=== PATIENT | female | born 1975 | race Caucasian/White ===

== ENCOUNTER 2017-02-17 11:49 | Emergency (ER) | payer OTHER ==
[~2017-02-17] VITALS: Ht 177.8 cm; Wt 90.7 kg
[2017-02-17 11:57] VITALS: BP 126/77
[2017-02-17] MEDS ORDERED: FLOXIN10 ML OT (12:33)
--- NOTE | 2017-02-17 12:33 | ED EAR COMPLAINT ---
History of Present Illness General Chief Complaint: Ear Complaints Stated Complaint: EAR PAIN DIZZINESS Source: patient Exam Limitations: no limitations Vital Signs & Intake/Output Vital Signs & Intake/Output Vital Signs Date Time Temp Pulse Resp B/P Pulse O2 O2 Flow FiO2 Ox Delivery Rate 02/17 1229 Room Air 02/17 1157 98.0 66 16 126/77 98 Room Air Allergies Coded Allergies: codeine (N/V 02/17/17) latex (HIVES 02/17/17) Reconcile Medications Ofloxacin (Floxin) 0.3 % DROPS 2 GTT OT DAILY TM PERFORATION Triage Note: PT STATES WEDNESDAY NIGHT SHE WAS AT WORK AND THERE WAS A LOUD NOISE BY HER AND SHORTLY AFTER SHE HAD SHARP PAIN IN BILAT EARS AND THEN SHE HAD FLUID COMING OUT OF HER RIGHT EAR. PT STATES SHE BLEW HER NOSE AND HEARD AIR BLOWING THROUGH HER EAR AND SHE HAS HAD VERTIGO SINCE. Triage Nurses Notes Reviewed? yes : No Patient currently breastfeeds: No HPI: this patient is a 41-year-old female who presented to the emergency department today for evaluation of bilateral ear pain. The patient reported that on Wednesday evening while she was at work someone dropped a pallet on the ground. She reported that it made it very loud noise which instantly caused her to have pain in both of her ears. She reported that the pain in her right ear subsided and then she began noticing fluid draining from the right ear. She reported that it sounds like, "there is cotton in my right ear." She reported that she has been dizzy. She had a headache after the incident, but not currently. The patient denied any fevers or chills. No chest pain or difficulty breathing. (BKAARI REYES PA-C) Past History Travel History Traveled to [place] past 21 day No Medical History Any Pertinent Medical History? see below for history Surgical History Surgical History: non-contributory Psychosocial History What is your primary language Nigerian Tobacco Use: Never used ETOH Use: occasional use Illicit Drug Use: denies illicit drug use Family History Hx Contributory? No (BAKARI REYES PA-C) Review of Systems Review of Systems Constitutional: Reports: no symptoms. EENTM: Reports: see HPI. Respiratory: Reports: no symptoms. Cardiovascular: Reports: no symptoms. GI: Reports: no symptoms. Genitourinary: Reports: no symptoms. Musculoskeletal: Reports: no symptoms. Skin: Reports: no symptoms. Neurological/Psychological: Reports: see HPI. All Other Systems: Reviewed and Negative (BAKARI REYES PA-C) Physical Exam Physical Exam Ears: Left: canal normal, Tympanic normal. Right: evidence of perforation. Comments: Well-developed well-nourished person in no acute distress HEENT: Head normocephalic/atraumatic, moist mucous membranes, no otorrhea, right -sided external auditory canal normal Neck: Supple, no lymphadenopathy Back: Normal gait Respiratory: No respiratory distress. Speaking in full sentences Extremities: No edema, full range of motion Neuro: Alert and oriented x3 Psych: Mood affect normal, normal memory normal judgment. Skin: Warm and dry, no rash on exposed skin (BAKARI REYES PA-C) Progress Differential Diagnoses I considered the following diagnoses in my evaluation of the patient: [Otitis media, otitis externa, mastoiditis, tympanic membrane perforation] Plan of Care: this patient is a 41-year-old female who presented to the emergency department today for evaluation of bilateral ear pain. On physical examination there is evidence of tympanic membrane perforation on the right. Patient has been reporting clear drainage from the right ear. She will have ENT follow-up and outpatient otic antibiotic drops. Initial ED EKG: none (BAKARI REYES PA-C) Departure Departure Disposition: HOME OR SELF CARE Condition: Stable Clinical Impression Primary Impression: Tympanic membrane perforation Qualifiers: Laterality: right Qualified Code: H72.91 - Unspecified perforation of tympanic membrane, right ear Referrals: ZURI JEAN BAPTISTE,FATUMA Castelan (PCP/Family) RUMA ESPINOZA MD Additional Instructions: Use otic drops as prescribed. Please called EENT physician whose information has been provided to you in this packet today for further evaluation. Do not get your ear wet. Return to the emergency Department for any worsening symptoms or concerns. Departure Forms: Customer Survey General Discharge Information Prescriptions: Current Visit Scripts Ofloxacin (Floxin) 2 GTT OT DAILY #1 BOT (BAKARI REYES PA-C) PA/PIPE FITTER HELPER Co-Sign Statement Statement: ED Attending supervision documentation- [] I saw and evaluated the patient. I have also reviewed all the pertinent lab results and diagnostic results. I agree with the findings and the plan of care as documented in the PA's/PIPE FITTER HELPER's documentation. x I have reviewed the ED Record and agree with the PA's/PIPE FITTER HELPER's documentation. [] Additions or exceptions (if any) to the PAs/PIPE FITTER HELPER's note and plan are summarized below: [] (RASHAAD JEAN BAPTISTE,BONILLA)
== END 2017-02-17 12:37 ==
LOC: ERH 11:49
DX: H72.91 Unspecified perforation of tympanic membrane, right ear (principal)

== ENCOUNTER → 2017-02-25 | Day surgery (SDC) | payer OTHER ==
[~2017-02-25] VITALS: Ht 177.8 cm; Wt 90.7 kg
[~2017-02-25] MED LIST: FLOXIN10 ML OT
--- NOTE | 2017-02-25 14:27 | Operative Report ---
Operative/Inv Procedure Report Surgery Date: 02/25/17 Name of Procedure: Laparoscopic tubal sterilization Pre-Operative Diagnosis: Multiparity Post-Operative Diagnosis: Same Estimated Blood Loss: less than 50ml Surgeon/Joinery Setter Out: RASHEL BLANCHARD MD Anesthesia: general endotracheal tube Operative/Procedure Note Note: Gen. patient was taken the operating room placed supine position after adequate anesthesia patient placed in dorsolithotomy position the vagina from dorsal fashion bladder was catheterized examination under anesthesia performed CO2 tenaculum was placed on the Intralipid cervix gentle downward traction the Roldan cannula remained in place this point surgeon regowned and gloved level the umbilicus level the umbilicus stab incision was made to allow for the entry of Veress needle then was insufflated possibly 4 L of CO2 to liver edge dullness which point the Veress needle was removed a 10 mm trocar was inserted atraumatically the umbilicus sheath remained placed through that sheath a laparoscope was placed under direct visualization a 5 mm trocar was placed 2 fingerbreadths of symptoms pubis in midline patient tolerated that well a Kleppinger was placed through the right tube was picked up carried to its fimbriated end possibly 70 on the second tube was Bovie coagulated left tube was picked up carried to its fimbriated end possibly 7 cm that tube Bovie coag pictures were taken maximal CO2 was removed from the abdomen on advancements removed on the from the abdomen under direct visualization the incision the umbilicus was oversewn using 0 for the fascia 3-year-old on interrupteds were used for both skin incisions Marcaine was injected underneath skin at the end of the case sterile bandages were applied the surgical sites Roldan cannula was moved Mei was removed on since removed from the vagina the patient was returned spine position awakened from anesthesia and transferred recovery room awake alert counts correct
== END ==
LOC: STS 01:04
DX: Z30.2 Encounter for sterilization (principal)
CPT/HCPCS: 81025; J0131; J0694; J2250

== ENCOUNTER → 2018-06-14 | Day surgery (SDC) | payer OTHER ==
--- NOTE | 2018-06-11 12:52 | History & Physical Pre-Op ---
General Information and HPI History of Present Illness: Beatrice is a 44-year-old female with a long-standing and worsening complaint of a painful neuroma left foot. The patient has undergone an extended course of conservative care, including shoe gear and activity modification, rest, immobilization and courses of NSAIDs. None of this is yielded her any significant relief. The patient presents today for preoperative surgical consultation. Allergies/Medications Allergies: Coded Allergies: codeine (N/V 06/10/18) latex (HIVES 06/10/18) Home Med list Ofloxacin (Floxin) 0.3 % DROPS 2 GTT OT DAILY TM PERFORATION Past History Surgical History Pertinent Surgical History: non-contributory Review of Systems Review of Systems: Unremarkable except for that noted in history of present illness Exam & Diagnostic Data Physical Exam: Lungs clear bilaterally. Heart sounds rate and rhythm regular. Lower extremity physical exam demonstrates intact pedal pulses bilaterally. Both dorsalis pedis and posterior tibial arteries are palpable bilaterally. Patient without any sensory motor deficits. Deep tendon reflexes grossly intact. Patient noted to have a positive Rosendo sign to the interspace left foot. Assessment/Plan Assessment/Plan: Painful neuroma left foot. A lengthy discussion reviewing both surgical and conservative options was held the patient at bedside and the patient elected to go forward surgery despite the risks. As Ranked By This Provider Problem List: 1. Lesion of left plantar nerve Attending MD Review Statement Attending Statement Attending MD Statement: examined this patient
[~2018-06-14] VITALS: Ht 177.8 cm; Wt 99.8 kg
--- NOTE | 2018-06-14 11:52 | Operative Report ---
Operative/Inv Procedure Report Surgery Date: 06/14/18 Name of Procedure: 1 excision of neuroma left foot 2 intraoperative administration of ankle block anesthesia Pre-Operative Diagnosis: 1 painful neuroma left foot Post-Operative Diagnosis: The same Estimated Blood Loss: scant Surgeon/Kiln Fireman: Jose Angel Albert DPM Anesthesia: moderate sedation, block Operative/Procedure Note Note: After obtaining informed consent the patient was brought to the operating room and placed on the operating table in the supine position. The patient isn't securely fastened to the operating table utilizing safety belt. After administration of IV sedation, 10 mL of 0.5% Marcaine plain was infiltrated about the patient's left ankle. Well-padded ankle tourniquet was placed about the patient's left lower extremity. 2 g of Ancef were delivered intravenously times one dose. The left foot was scrubbed prepped and draped in usual aseptic manner. Left lower extremity was elevated to examine to limb, which point the ankle tourniquet inflated 250 mmHg. Attention directed dorsal aspect the left foot, where a 4 cm linear incision was made over the distal third interspace. Dissection was then carried down to subtenons tissues were all vital neurovascular structures were identified protected. The digital branches of the neuroma were identified and freed. The body of the neuroma was identified distracted distally and cut proximally. The specimen was sent for pathologic inspection. The wound was irrigated cuff Svensson normal sterile saline. The deep tissues reprepped with 4-0 Vicryl skin is reprepped with 3-0 nylon. Incision just with Xeroform, 4 x 4's, Kerlix and Faisal wrap. The patient was noted to tolerate both procedure and anesthesia well and the patient was transported from the operative room to recovery with vital signs stable best assess intact to all digits left foot.
== END ==
LOC: STS 01:28
DX: G57.62 Lesion of plantar nerve, left lower limb (principal)
CPT/HCPCS: J0690; J1885; J2001; J2250; J3490